=== PATIENT | female | born 1940 | race Hispanic/Latino ===

== ENCOUNTER → 2019-07-02 | Outpatient (CLI) | payer MEDICARE | END | disposition home or self-care (01) | LOC: SHCH 14:41 | PROVIDERS: ATTEND Internal Medicine Cardiovascular Disease | DX: R07.9 Chest pain, unspecified (principal) | CPT/HCPCS: 93306 ==

== ENCOUNTER → 2019-07-06 | Outpatient (CLI) | payer MEDICARE ==
[~2019-07-06] VITALS: Ht 167.6 cm; Wt 78.0 kg
[~2019-07-06] MED LIST: REGADENOSON 0.4 MG/5 ML PF SYG IVP SCH
== END | disposition home or self-care (01) ==
LOC: SHCH 07:47
PROVIDERS: ATTEND Internal Medicine Cardiovascular Disease
DX: M06.9 Rheumatoid arthritis, unspecified (principal); R07.9 Chest pain, unspecified
CPT/HCPCS: 78452; 93017; 96374; A9500 ×2; J2785

== ENCOUNTER → 2019-08-31 | Outpatient (CLI) | payer MEDICARE | END | disposition home or self-care (01) | LOC: RAH 10:19 | PROVIDERS: ATTEND Family Medicine | DX: R10.12 Left upper quadrant pain (principal); Z90.710 Acquired absence of both cervix and uterus; Z90.49 Acquired absence of other specified parts of digestive tract | CPT/HCPCS: 76700; 76856 ==

== ENCOUNTER 2020-04-06 06:09 | Observation (INO) | payer MEDICARE ==
[2020-04-01 13:18] LABS: BASOPHILS % (AUTO) 0.6 % (0.0-5.0); EOSINOPHILS % (AUTO) 1.5 % (0.0-8.0); HEMATOCRIT 42.6 % (36-48); LYMPHOCYTES % (AUTO) 35.4 % (21.0-51.0); MEAN CORPUSCULAR HEMOGLOBIN 30.4 pg (27.0-33.0); MEAN CORPUSCULAR HGB CONC 33.6 g/dL (32.0-36.0); MEAN CORPUSCULAR VOLUME 90.6 fL (79-99); NEUTROPHILS % (AUTO) 53.2 % (40.0-77.0); PLATELET COUNT (AUTO) 208 K/uL (130-400); RED CELL DISTRIBUTION WIDTH 12.7 % (11.0-15.5); WHITE BLOOD COUNT (AUTO) 6.7 K/uL (4.8-10.8)
[2020-04-01 13:27] LABS: CREATININE 0.6 mg/dL (0.5-1.5); POTASSIUM 4.6 mmol/L (3.5-5.1)
[2020-04-01 13:32] LABS: INR 0.92 (0.85-1.15); PARTIAL THROMBOPLASTIN TIME 26.1 SEC (26.3-35.5)
[2020-04-01 13:33] LABS: APPEARANCE,URINE Clear (CLEAR); BILIRUBIN,URINE Negative (NEGATIVE); COLOR,URINE Dark Yellow (YELLOW); GLUCOSE, URINE (UA) Negative (NEGATIVE); KETONES,URINE Negative (NEGATIVE); LEUKOCYTE ESTERASE ,URINE Small (NEGATIVE); NITRATE,URINE Negative (NEGATIVE); OCCULT BLOOD,URINE Negative (NEGATIVE); PROTEIN,URINE Negative (NEGATIVE)
[2020-04-01 13:38] LABS: BACTERIA,URINE Rare /HPF (None Seen); RBC,URINE 0-1 /HPF (0-1); SQUAMOUS EPITHELIAL CELL,UR Rare /HPF (0-2); WBC,URINE 0-1 /HPF (0-1)
[2020-04-05 10:25] VITALS: BP 144/73
[~2020-04-06] VITALS: Ht 167.6 cm; Wt 78.4 kg
[2020-04-06] VITALS (21 sets, daily range): BP systolic 105–196; BP diastolic 49–81
[~2020-04-06 06:09] MED LIST changes: +ASCO100031 PO; +CARV6.25 PO; +CHOL500051 PO; +LATA7.5D OU; +PANT40TA54 PO; +PROP15DR56 OD; -REGADENOSON 0.4 MG/5 ML PF SYG IVP SCH; +VITA100014 PO; +VITA1CAP PO
[2020-04-06] MEDS ORDERED: SODIUM CHLORIDE 0.9% 1000ML 1,000 ML IV ONE (07:07)
[2020-04-06] MEDS ORDERED: IOHEXOL 350 MG/ML 100ML INFUS..BTL IV ONE (07:10)
[2020-04-06] MEDS ORDERED: HEPARIN SODIUM 1000UNIT/ML 10ML VIAL ONE (07:10)
[2020-04-06] MEDS ORDERED: IOHEXOL-350 50ML VIAL IV ONE (07:10)
[2020-04-06] MEDS ORDERED: LIDOCAINE HCL 2% 20ML ONE (07:10)
[2020-04-06] MEDS ORDERED: NITROGLYCERIN 4.1 GM SPRAY TL ONE (07:44)
[2020-04-06] MEDS ORDERED: SODIUM CHLORIDE 0.9% 10 ML VIAL IVP SCH ×2 (08:15→09:45)
[2020-04-06] MEDS ORDERED: ONDANSETRON HCL 4 MG/2 ML VIAL ONE (09:15)
[2020-04-06] MEDS ORDERED: ONDANSETRON HCL 4 MG/2 ML VIAL IVP SCH (09:30)
--- NOTE | 2020-04-06 10:05 | NUR ---
alteration in comfort: pat verbalized nausea subsided.
--- NOTE | 2020-04-06 10:05 | NUR ---
urinary elimination: voided 125cc clear yellow color urine in bedpan.
--- NOTE | 2020-04-06 13:40 | NUR ---
potential for bleeding: cleaned area to right groin area. noted continous oozing to site.
--- NOTE | 2020-04-06 13:50 | NUR ---
bleeding: notified mario posada rn of oozing to site. d-stat removed to check site and reapplied with clean d-stat per gTeagan escalante rn. pressure held for 30 minutes. surrounding area remained soft to touch.
--- NOTE | 2020-04-06 13:55 | NUR ---
ADMIT LICO LOVELACE ON PHONE. ORDERS PER DR. EASON TO ADMIT PT TO DR. MCINTOSH OVERNIGHT TO PCCU.
--- NOTE | 2020-04-06 13:55 | NUR ---
BLEEDING INFORMED LICO LOVELACE OF PT HAVING SLIGHT OOZING TO GROIN SITE. SITE SOFT TO TOUCH. ORDERS RECEIVED TO APPLY 30 MINUTES OF PRESSURE TO SITE, APPLY NEW DSTAT, AND ASSESS SITE FREQUENTLY.PT TO BE ON BEDREST.
--- NOTE | 2020-04-06 15:03 | NUR ---
report: report given to primary care nurse renée hermosillo
[2020-04-06] MEDS ORDERED: ACETAMINOPHEN 325 MG TAB PO PRN (17:30)
[2020-04-06] MEDS ORDERED: MORPHINE SULFATE 2 MG/ML 1ML SYG IVP ONE (19:40)
[2020-04-06] MEDS: CARVEDILOL 6.25 MG TABLET PO SCH (20:15)
[2020-04-06] MEDS ORDERED: ONDANSETRON HCL 4 MG/2 ML VIAL IVP PRN (20:15)
--- NOTE | 2020-04-06 20:15 | NUR ---
NAUSEA Pt c/o of nausea,medicated with Zofran.
[2020-04-06] MEDS ORDERED: NON-FORMULARY MEDICATION 1 EACH (Latanoprost/Pf (Latanoprost 0.005% Eye Drop) 1 DROP) OU SCH (21:00)
[2020-04-06] MEDS ORDERED: LATANOPROST 2.5 ML DROPS OU SCH (21:00)
--- NOTE | 2020-04-06 21:00 | NUR ---
RT GROIN Rt groin site remains soft,d stat dressing dry and intact.No hematoma,pedal pulses palpable.
--- NOTE | 2020-04-06 21:15 | NUR ---
MED EFFECT Pt verbalized relief from nausea.
[2020-04-07 03:50] VITALS: BP 144/50
[2020-04-07 04:07] LABS: BASOPHILS % (AUTO) 0.4 % (0.0-5.0); EOSINOPHILS % (AUTO) 0.3 % (0.0-8.0); HEMATOCRIT 38.9 % (36-48); LYMPHOCYTES % (AUTO) 30.7 % (21.0-51.0); MEAN CORPUSCULAR HEMOGLOBIN 30.5 pg (27.0-33.0); MEAN CORPUSCULAR HGB CONC 34.4 g/dL (32.0-36.0); MEAN CORPUSCULAR VOLUME 88.6 fL (79-99); MONOCYTES % (AUTO) 9.8 % (3.0-13.0); NEUTROPHILS % (AUTO) 58.4 % (40.0-77.0); PLATELET COUNT (AUTO) 186 K/uL (130-400); RED BLOOD CELL COUNT(AUTO) 4.39 MIL/uL (4.00-5.50); RED CELL DISTRIBUTION WIDTH 12.6 % (11.0-15.5); WHITE BLOOD COUNT (AUTO) 10.2 K/uL (4.8-10.8)
[2020-04-07 04:27] LABS: CREATININE 0.6 mg/dL (0.5-1.5); POTASSIUM 3.4 mmol/L (3.5-5.1)
[2020-04-07] MEDS ORDERED: PROPYLENE GLYCOL OD PRN (07:00)
[2020-04-07] MEDS ORDERED: PEG OD PRN (07:00)
[2020-04-07 07:49] VITALS: BP 158/68
[2020-04-07] MEDS: CARVEDILOL 6.25 MG TABLET PO SCH (08:43)
[2020-04-07] MEDS ORDERED: POTASSIUM CHLORIDE 20 MEQ ERTAB PO SCH (09:00)
[2020-04-07] MEDS ORDERED: PANTOPRAZOLE SODIUM 40 MG TABLET.DR PO SCH (09:00)
[2020-04-07] MEDS ORDERED: VITAMIN B COMPLEX 1 CAPSULE PO SCH (09:00)
[2020-04-07] MEDS ORDERED: NON-FORMULARY MEDICATION 1 EACH (Ascorbic Acid (Vitamin C) 1,000 MG) PO SCH (09:00)
[2020-04-07] MEDS ORDERED: VITAMIN A 10000 UNIT CAPSULE PO SCH (09:00)
[2020-04-07] MEDS ORDERED: CHOLECALCIFEROL 125 MCG PO SCH (09:00)
[2020-04-07] MEDS ORDERED: ASCORBIC ACID 500 MG TAB PO SCH (09:00)
--- NOTE | 2020-04-07 11:28 | NUR ---
[id number] patient signed EARL Letter, I faxed EARL Letter to [id number] and placed in chart under consent tab.
[2020-04-07 11:45] VITALS: BP 128/59
--- NOTE | 2020-04-07 13:40 | NUR ---
DISCHARGE INSTRUCTIONS GIVEN TO PATIENT, MADE AWARE OF FOLLOW UP APPOINTMENT WITH DR. EASON, MADE AWARE OF NEW RX FOR IMDUR. ASSESSED PATIENTS RIGHT GROIN, REMOVED DRESSING, AREA SOFT, NO HEMATOMA OR BLEEDING NOTED. PATIENT AT THIS TIME DENIES ANY CHEST PAIN, AMBULATING IN ROOM WITH NO DIFFICULTY. ALL QUESTIONS ANSWERED. IV AND TELE REMOVED. WILL BE PICKED UP BY HER DAUGHTER. DISCHARGE INSTRUCTIONS ALSO GIVEN TO PATIENTS DAUGHTER OVER THE PHONE.
== END 2020-04-07 13:40 | disposition home or self-care (01) ==
LOC: DAH 06:09 → DAHIP 06:10 → 4AH 15:14
PROVIDERS: ADMIT Internal Medicine; ATTEND Internal Medicine
DX: I25.119 Atherosclerotic heart disease of native coronary artery with unspecified angina pectoris (principal); K21.9 Gastro-esophageal reflux disease without esophagitis; I11.9 Hypertensive heart disease without heart failure; Z90.710 Acquired absence of both cervix and uterus; Z90.49 Acquired absence of other specified parts of digestive tract
CPT/HCPCS: 36415 ×2; 71045; 80048 ×2; 81001; 85025 ×2; 85610; 85730; 93005; 93458; 96361; 96374; 96375; A4215; A4216; A4221; A4222; A4223 ×3; A4606; A4663; C1760 ×2; C1894; G0378 ×19; J1644; J2405 ×2; J3490; J7030; Q9965; Q9967 ×2

== ENCOUNTER → 2022-10-22 | Outpatient (CLI) | payer OTHER, MEDICARE ==
[2022-10-22 16:44] LABS: ALBUMIN 3.6 g/dL (3.5-5.0); CREATININE 0.7 mg/dL (0.5-1.5); POTASSIUM 4.3 mmol/L (3.5-5.1); TOTAL PROTEIN, SERUM 7.8 g/dL (6.0-8.3)
== END | disposition home or self-care (01) ==
LOC: LAB 10:43
PROVIDERS: ATTEND Internal Medicine Cardiovascular Disease
DX: I25.10 Atherosclerotic heart disease of native coronary artery without angina pectoris (principal)
CPT/HCPCS: 36415; 80053; 80061

== ENCOUNTER → 2023-09-02 | Outpatient (CLI) | payer OTHER, MEDICARE | END | disposition home or self-care (01) | LOC: SHCH 08:46 | PROVIDERS: ATTEND Internal Medicine Cardiovascular Disease | DX: I73.9 Peripheral vascular disease, unspecified (principal) | CPT/HCPCS: 93925 ==

== ENCOUNTER 2024-12-25 17:50 | Observation (INO) | payer OTHER, MEDICARE ==
[~2024-12-25] VITALS: Ht 160 cm; Wt 66.7 kg
[~2024-12-25 17:50] MED LIST changes: +CILO100T3 PO
--- NOTE | 2024-12-25 18:05 | ERN ---
ED Note History of Present Illness Stated Complaint: DIARRHEA Chief Complaint: Diarrhea Time Seen by MD: 18:00 Time Seen by Midlevel: 18:00 Dictation: Ms. Corrales is a 84 year old female with history of hypertension, hyperlipidemia, and GERD who presented to the Emergency Department this evening for evaluation of abdominal pain. She reports diffuse abdominal pain with nausea and diarrhea. She reports 6 diarrhea stools as well as some low back pain. She was recently discharged from the hospital on 12/16 following admission for dehydration, enterocolitis, hyperkalemia, transaminitis, and intractable nausea and vomiting. Family states she did eat She denies fever, chills, shortness of breath, cough, chest pain, palpitations, edema, vomiting, hematemesis, melena, hematochezia, dysuria, hematuria, ALLEN or dizziness. Allergies: Coded Allergies: No Known Allergies (Unverified Allergy, 03/04/13) Emergency Care WEAVING INSTRUCTOR: None Home Meds Reported Medications Cilostazol (Cilostazol) 100 Mg Tablet, 1 TAB PO BIDPC TAKE 30 MINS AFTER BREAKFAST AND DINNER 12/15/23 Propylene Glycol/Peg 400 (Lubricating Eye Drop) 15 Ml Drops, 1 DROP OD 4XD PRN for DRY EYES, DROP 04/05/20 Latanoprost/Pf (Latanoprost 0.005% Eye Drop) 7.5 Ml Drops, 1 DROP OU HS, DROP 04/05/20 Pantoprazole Sodium (Pantoprazole Sodium) 40 Mg Tablet.dr, 40 MG PO AM, TAB 04/05/20 Cholecalciferol (Vitamin D3) (Vitamin D3) 125 Mcg Capsule, 125 MCG PO DAILY, CAP 04/05/20 Vitamin A (Vitamin A) 10,000 Unit/Cap Capsule, 29464 UNIT PO DAILY, CAP 04/05/20 Ascorbic Acid (Vitamin C) 1,000 Mg Tablet, 1000 MG PO DAILY, TAB 04/05/20 Vitamin B Complex (B Complex) 1 Cap Capsule, 1 CAP PO DAILY, CAP 04/05/20 Carvedilol (Carvedilol) 6.25 Mg Tablet, 6.25 MG PO BID, TAB 04/05/20 Past Medical History Past Medical History: High Cholesterol, Hypertension Surgical History: Appendectomy, Hysterectomy, Other Surgical History Other: BLADDER LIFT PSYCH History: no pertinent psych hx Social History: Negative History: Not Applicable RN Note Reviewed/Agreed w/PFSH: Yes Review of System Dictation REVIEW OF SYSTEMS: CONSTITUTIONAL: Patient denies fevers, chills, sweats and weight changes. EYES: Patient denies any visual symptoms. EARS, NOSE, AND THROAT: No difficulties with hearing. No symptoms of rhinitis or sore throat. CARDIOVASCULAR: Patient denies chest pains, palpitations, orthopnea and paroxysmal nocturnal dyspnea. RESPIRATORY: No dyspnea on exertion, no wheezing or cough. GI: No vomiting, constipation, hematochezia or melena. Reports abdominal pain/cramping. Reports nausea without vomiting. Reports 6 diarrhea stools today. : No urinary hesitancy or dribbling. No nocturia or urinary frequency. No abnormal urethral discharge. MUSCULOSKELETAL: No myalgias or arthralgias. NEUROLOGIC: No chronic headaches, no seizures. Patient denies numbness, tingling or weakness. PSYCHIATRIC: Patient denies problems with mood disturbance. No problems with anxiety. ENDOCRINE: No excessive urination or excessive thirst. DERMATOLOGIC: Patient denies any rashes or skin changes. Initial Vital Sign VS Vital Signs Date Time Temp Pulse Resp B/P (MAP) Pulse Ox O2 Delivery O2 Flow Rate FiO2 12/25/24 17:51 97.9 77 18 141/64 96 Room Air 12/25/24 18:15 0 21 Physical Exam Dictation Vital signs: Reviewed. Afebrile. Constitutional:Uncomfortable; moaning. Holding her stomach. Daughter attentive at bedside. Head/Face: Normocephalic, atraumatic. Eyes: Periorbital areas with no swelling, redness, or edema. Lids and lashes are normal. Conjunctival injection is absent. Sclera anicteric. Pupils equal, round, reactive to light. ENT: Pinnas intact and no signs of trauma or erythema. Ear canals clear and no discharge. TMs no erythema. No nasal discharge or bleeding noted. Oropharynx with no exudate, redness, swelling, masses, exudates, or evidence of obstruction. Uvula midline. Mucous membranes dry. Neck: Trachea midline, no masses palpated, and no cervical lymphadenopathy. No swelling. Supple, full range of motion. Chest/Axilla: No tenderness, no crepitus, no paradoxical movement, no retractions. Cardiovascular: Regular rate, regular rhythm, no murmur, no gallops. Symmetric pulses. No peripheral edema. Respiratory: Respirations even and unlabored. Lung sounds clear; no wheezes, rales or rhonchi. Room air spo2 96% Gastrointestinal: Inspection is normal. No distention is appreciated. Bowel sounds are normal. No mass or organomegaly . Tenderness diffusely. No rebound. No rigidity. No involuntary guarding. No Solo's sign. + voluntary guarding. : Negative CVA tenderness bilaterally. Neurological: Normal speech, gross motor function intact, gross sensory function intact. No focal weakness/Paresthesia. Musculoskeletal/Extremities: All extremities have full range of motion, no pain or tenderness on palpation. Symmetric pulses. Integumentary: Intact. Skin is normal color, warm and dry. Cap refill less than 3 seconds. Results (Laboratory/Radiology) Laboratory/Radiology Laboratory Tests Test 12/25/24 18:56 12/25/24 19:02 White Blood Count 11.6 K/uL (4.8-10.8) H Red Blood Count 4.52 MIL/uL (4.00-5.50) Hemoglobin 13.7 g/dL (12.0-16.0) Hematocrit 41.0 % (36-48) Mean Corpuscular Volume 90.7 fL (79-99) Mean Corpuscular Hemoglobin 30.3 pg (27.0-33.0) Mean Corpuscular Hemoglobin Concent 33.4 g/dL (32.0-36.0) Red Cell Distribution Width 13.0 % (11.0-15.5) Platelet Count 221 K/uL (130-400) Mean Platelet Volume 11.0 fL (7.5-10.5) H Immature Granulocyte % (Auto) 0.4 % (0-1) Neutrophils (%) (Auto) 71.8 % (40.0-77.0) Lymphocytes (%) (Auto) 18.3 % (21.0-51.0) L Monocytes (%) (Auto) 8.2 % (3.0-13.0) Eosinophils (%) (Auto) 0.9 % (0.0-8.0) Basophils (%) (Auto) 0.4 % (0.0-5.0) Neutrophils # (Auto) 8.3 K/uL (1.8-7.7) H Lymphocytes # (Auto) 2.1 K/uL (1.0-4.8) Monocytes # (Auto) 1.0 K/uL (0.1-1.0) Eosinophils # (Auto) 0.10 K/uL (0.00-0.70) Basophils # (Auto) 0.05 K/uL (0.00-0.20) Absolute Immature Granulocyte (auto 0.05 K/uL (0-1) Nucleated Red Blood Cells 0.0 % (0.0-0.19) Sodium Level 142 mmol/L (136-145) Potassium Level 4.5 mmol/L (3.5-5.1) Chloride Level 107 mmol/L (101-111) Carbon Dioxide Level 27 mmol/L (21-32) Blood Urea Nitrogen 9 mg/dL (7-18) Creatinine 0.6 mg/dL (0.5-1.0) Glomerular Filtration Rate Calc 88 mL/min (>90) Random Glucose 100 mg/dL (70-105) Total Calcium 9.0 mg/dL (8.5-10.1) Total Bilirubin 1.2 mg/dL (0.2-1.0) H Direct Bilirubin 0.4 mg/dL (0.0-0.3) H Aspartate Amino Transf (AST/SGOT) 67 U/L (10-37) H Alanine Aminotransferase (ALT/SGPT) 28 U/L (12-78) Alkaline Phosphatase 126 U/L (50-136) Total Protein 7.2 g/dL (6.0-8.3) Albumin 3.3 g/dL (3.5-5.0) L Lipase 49 U/L (16-77) Urine Color STRAW (YELLOW) Urine Appearance CLEAR (CLEAR) Urine pH 5.5 (5.0-8.0) Urine Specific [place] 1.007 (1.001-1.031) Urine Protein NEGATIVE mg/dL (NEGATIVE) Urine Glucose (UA) NEGATIVE mg/dL (NEGATIVE) Urine Ketones NEGATIVE mg/dL (NEGATIVE) Urine Occult Blood NEGATIVE (NEGATIVE) Urine Nitrate NEGATIVE (NEGATIVE) Urine Bilirubin NEGATIVE mg/dL (NEGATIVE) Urine Urobilinogen 0.2 mg/dL (0.2-1.0) Urine Leukocyte Esterase NEGATIVE Valdo/uL Labs Reviewed?: Yes CT Scan Comment: PATIENT: DANIE CORRALES MR#: [id number] : 1940 SEX: F AGE: 84 LOCATION: [facility] ORDER 17 STATUS: REG ER REPORT#: [id number] SERVICE 16 REASON: abdominal pain, hx diverticulitis ORDERING PHYSICIAN: ENE PIERRE NP PROCEDURE: ABD PEL WO - CT ABDOMEN/PELVIS W/O CONTRAST CT ABDOMEN/PELVIS W/O CONTRAST HISTORY: Abdominal pain COMPARISON: 12/14/2003 TECHNIQUE: Multiple sequential axial images of the abdomen and pelvis were obtained from the dome of the diaphragm through symphysis pubis. Patient was not given contrast through intravenous route. Oral contrast was not given. FINDINGS: No pleural effusion is seen bilaterally. There is no evidence of parenchymal disease or pulmonary nodule of the visualized lower lungs. Degenerative changes of the thoracolumbar spine are present. The heart is not enlarged. Coronary arterial calcifications are seen. Postcholecystectomy changes are seen. The liver, spleen, adrenal glands and pancreas are unremarkable. There is no evidence of hydronephrosis bilaterally. No evidence of renal stone is seen. Fecal material is seen in the colon. There are normal size retroperitoneal and mesenteric lymph nodes. No ascites is seen. No CT evidence of acute appendicitis is seen. Pelvic sidewalls are symmetric bilaterally. Bladder is well distended without wall thickening. IMPRESSION: 1. No acute findings. CT was performed with one or more following dose reduction techniques: automated exposure control, adjustment of the mA and kv according to patient's size, or use of a iterative reconstruction technique. DICTATED BY: LAY CALDERÓN MD DATE: 12/25/242014 ELECTRONICALLY SIGNED BY: LAY CALDERÓN MD DATE: 12/25/242021 ED Course ED Course Orders Procedure Category Date Status Time Urinalysis Profile LAB 12/25/24 Complete Catherized 18:01 Cbc With Differential LAB 12/25/24 Complete 18:01 Basic Metabolic Panel LAB 12/25/24 Complete 18:01 Hepatic Function Panel LAB 12/25/24 Complete 18:01 Lipase LAB 12/25/24 Complete 18:01 0.9% Nacl 500ml PHA 12/25/24 Complete Iv.Soln (Ns 500ml 18:30 Ondansetron 4mg Inj PHA 12/25/24 Complete (Zofran 4mg Inj) 18:30 Morphine 2mg Syg PHA 12/25/24 Complete (Morphine 2mg Syg) 18:30 Ct Abdomen/Pelvis W/O CT 12/25/24 Resulted Contrast 19:17 Pantoprazole 40mg Inj PHA 12/25/24 Complete (Protonix 40mg Inj 20:00 Fecal Wbc LAB 12/25/24 Logged (Lactoferrin) 20:56 Stool Culture MICHELLE 12/25/24 Logged 20:56 C Difficile A/B LAB 12/25/24 Logged 20:56 Ova And Parasite MICHELLE 12/25/24 Logged 20:56 Occult Blood Stool LAB 12/25/24 Logged Single Only 20:56 C Difficile A/B LAB 12/25/24 Logged 21:14 Metronidazole PHA 12/25/24 In Process 500mg/100ml Bag 22:00 Lactated Ringers PHA 12/25/24 In Process 1000ml (Lactated 21:30 Morphine 2mg Syg PHA 12/25/24 In Process (Morphine 2mg Syg) 21:30 Vital Signs(Adult CPOE 12/25/24 Transmitted Hospitalist) 21:14 Acetaminophen 325 Tab PHA 12/25/24 In Process (Tylenol 325mg Tab 21:30 Acetaminophen 325 Tab PHA 12/25/24 In Process (Tylenol 325mg Tab 21:30 Ondansetron 4mg Inj PHA 12/25/24 In Process (Zofran 4mg Inj) 21:30 Mag/Alum/Simeth 30ml PHA 12/25/24 In Process (Maalox Plus 30ml) 21:30 Nitroglycerin 0.4mg PHA 12/25/24 In Process Sl Tab (Nitrostat) 21:30 Guaifenesin-Dm PHA 12/25/24 In Process 200/20mg 10ml 21:30 Nurse To Enter Home CPOE 12/25/24 Transmitted Medication 21:14 Admit Orders ADM 12/25/24 Transmitted 21:14 Condition: CPOE 12/25/24 Transmitted 21:14 Clear Liquid DIET 12/26/24 Transmitted Breakfast Advance Diet As CPOE 12/25/24 Transmitted Tolerated To: 21:14 Enoxaparin Sodium 40 PHA 12/26/24 In Process Mg/0.4 Ml (Lovenox) 09:00 Hydralazine 20mg Inj PHA 12/25/24 In Process (Apresoline 20mg In 21:30 Occult Blood Stool LAB 12/25/24 Logged Single Only 21:14 Pt Eval Request PT 12/25/24 Transmitted 21:14 Current Medications Medications (Trade) Dose Ordered Sig/Gino Route PRN Reason Start Time Stop Time Status Last Admin Dose Admin Morphine Sulfate (morPHINE 2MG SYG) 2 mg ONCE ONCE IVP 12/25/24 18:30 12/25/24 18:31 DC 12/25/24 18:45 Ondansetron HCl (zoFRAN 4MG INJ) 4 mg ONCE ONCE IVP 12/25/24 18:30 12/25/24 18:31 DC 12/25/24 18:45 Pantoprazole Sodium (PROTonix 40MG INJ) 40 mg ONCE ONCE IVP 12/25/24 20:00 12/25/24 20:01 DC 12/25/24 20:23 Sodium Chloride 500 ml @ 0 mls/hr ONCE ONCE IV 12/25/24 18:30 12/25/24 18:31 DC 12/25/24 18:45 Vital Signs Date Time Temp Pulse Resp B/P (MAP) Pulse Ox O2 Delivery O2 Flow Rate FiO2 12/25/24 22:30 97.9 72 20 154/83 96 Room Air 12/25/24 22:21 98.1 64 15 145/62 97 Room Air* 0 12/25/24 21:15 97.9 71 14 140/59 99 Room Air* 0 12/25/24 20:15 97.5 70 16 133/56 98 Room Air* 0 12/25/24 19:11 97.7 67 15 135/54 99 Room Air* 0 12/25/24 18:15 65 24 156/64 100 Room Air* 0 12/25/24 17:51 97.9 77 18 141/64 96 Room Air Vital signs remained stable; afebrile and normotensive with room air SpO2 96- 100%. CT scan of the abdomen and pelvis unremarkable. Laboratory findings as noted below. WBCs 11.6, total bili 1.2, AST 64, and albumin 3.3. UA is clear. She received doses Protonix, Zofran, and morphine. Pain persists. Findings were discussed with ORE DRESSING ENGINEER Soren who accepts for admission to be BIS Medical Decision Making MDM MDM: Differential diagnosis: Diverticulitis, electrolyte derangement, dehydration, UTI Rationale: Tests considered and ordered secondary to shared decision making include: labs, ECG and radiology Previous outside records reviewed: Old ER visits. Risk of complication and/or morbidity or mortality of patient management: None Medications-Per medication reconciliation Need for hospitalization: Patient does meet criteria for hospitalization. Need for emergency major/minor surgery: No There are no social concerns with this patient. Prescription drug management Prescriptions will include symptomatic care Patient's prior external medical records from other ER visits were reviewed by me as indicated. Prior testing and results from previous visits were reviewed. Prior tests were taken into account with medical decision making and resource utilization, independent historian/historians were used to obtain complete medical history. I independently interpreted the test that were performed, results were reviewed by me and considered findings on radiology if ordered. Medical management and examination interpretation discussions were had by me with other qualified healthcare professionals as indicated for the patient's care. DX & DISP Disposition: Observation Departure Impression: Primary Impression: Intractable abdominal pain Additional Impressions: Diarrhea, Transaminitis, Leukocytosis Condition: Stable Assign Patient to: Dr. Alexandro Bowling Referrals: ANTOINETTE GLASGOW MD (PCP) I performed a substantive portion of the visit. I have reviewed and personally made and approve the management plan that is documented in the notes by myself with FRANSICO/resident. I acknowledged full responsibility for the patient's management plan. ENE PIERRE NP December 25, 2024 18:05 EDY QURESHI DO December 26, 2024 01:04
--- NOTE | 2024-12-25 18:15 | NUR ---
PT SITUATED IN 14
[2024-12-25] MEDS: morPHINE 2 MG SYG IVP ONE (18:45)
[2024-12-25] MEDS: ondanSETRON 4MG INJ IVP ONE (18:45)
[2024-12-25] MEDS: 0.9% NACL 500ML IV.SOLN 500 ML IV ONE (18:45)
[2024-12-25 19:07] LABS: BASOPHILS # (AUTO) 0.05 K/uL (0.00-0.20); BASOPHILS % (AUTO) 0.4 % (0.0-5.0); EOSINOPHILS % (AUTO) 0.9 % (0.0-8.0); IMMATURE GRANULOCYTE ABSOLUTE 0.05 K/uL (0-1); LYMPHOCYTES # (AUTO) 2.1 K/uL (1.0-4.8); LYMPHOCYTES % (AUTO) 18.3 % (21.0-51.0); MEAN CORPUSCULAR HEMOGLOBIN 30.3 pg (27.0-33.0); MEAN CORPUSCULAR HGB CONC 33.4 g/dL (32.0-36.0); MEAN CORPUSCULAR VOLUME 90.7 fL (79-99); MONOCYTES % (AUTO) 8.2 % (3.0-13.0); NEUTROPHILS # (AUTO) 8.3 K/uL (1.8-7.7); NEUTROPHILS % (AUTO) 71.8 % (40.0-77.0); PLATELET COUNT (AUTO) 221 K/uL (130-400); RED BLOOD CELL COUNT(AUTO) 4.52 MIL/uL (4.00-5.50); WHITE BLOOD COUNT (AUTO) 11.6 K/uL (4.8-10.8)
[2024-12-25 19:13] LABS: CREATININE 0.6 mg/dL (0.5-1.0); POTASSIUM 4.5 mmol/L (3.5-5.1)
[2024-12-25 19:17] LABS: ALBUMIN 3.3 g/dL (3.5-5.0); BILIRUBIN,DIRECT 0.4 mg/dL (0.0-0.3); BILIRUBIN,TOTAL 1.2 mg/dL (0.2-1.0); TOTAL PROTEIN, SERUM 7.2 g/dL (6.0-8.3)
[2024-12-25 19:26] LABS: APPEARANCE,URINE CLEAR (CLEAR); BILIRUBIN,URINE NEGATIVE (NEGATIVE); GLUCOSE, URINE (UA) NEGATIVE (NEGATIVE); KETONES,URINE NEGATIVE (NEGATIVE); LEUKOCYTE ESTERASE ,URINE NEGATIVE Leu/uL (NEGATIVE); NITRATE,URINE NEGATIVE (NEGATIVE); OCCULT BLOOD,URINE NEGATIVE (NEGATIVE); PH,URINE 5.5 (5.0-8.0); PROTEIN,URINE NEGATIVE (NEGATIVE); UROBILINOGEN,URINE 0.2 mg/dL (0.2-1.0)
[2024-12-25 19:30] LABS: ADD UA MICROSCOPIC NO
[2024-12-25 19:31] LABS: COLOR,URINE STRAW (YELLOW)
--- NOTE | 2024-12-25 20:00 | NUR ---
PT TO CT AT THIS TIME
--- NOTE | 2024-12-25 20:22 | HMCIMG ---
CT ABDOMEN/PELVIS W/O CONTRAST HISTORY: Abdominal pain COMPARISON: 12/14/2003 TECHNIQUE: Multiple sequential axial images of the abdomen and pelvis were obtained from the dome of the diaphragm through symphysis pubis. Patient was not given contrast through intravenous route. Oral contrast was not given. FINDINGS: No pleural effusion is seen bilaterally. There is no evidence of parenchymal disease or pulmonary nodule of the visualized lower lungs. Degenerative changes of the thoracolumbar spine are present. The heart is not enlarged. Coronary arterial calcifications are seen. Postcholecystectomy changes are seen. The liver, spleen, adrenal glands and pancreas are unremarkable. There is no evidence of hydronephrosis bilaterally. No evidence of renal stone is seen. Fecal material is seen in the colon. There are normal size retroperitoneal and mesenteric lymph nodes. No ascites is seen. No CT evidence of acute appendicitis is seen. Pelvic sidewalls are symmetric bilaterally. Bladder is well distended without wall thickening. IMPRESSION: 1. No acute findings. CT was performed with one or more following dose reduction techniques: automated exposure control, adjustment of the mA and kv according to patient's size, or use of a iterative reconstruction technique.
[2024-12-25] MEDS: PANTOPrazole 40 MG/VIAL IVP ONE (20:23)
[2024-12-25] MEDS ORDERED: NITROGLYCERIN 0.4 MG SL TAB SL PRN (21:30)
[2024-12-25] MEDS ORDERED: guaiFENesin-DM 200/20MG 10ML PO PRN (21:30)
[2024-12-25] MEDS ORDERED: ondanSETRON 4MG INJ IV PRN (21:30)
[2024-12-25] MEDS ORDERED: acetaMINOPHEN 325 MG TAB PO PRN ×2 (21:30)
[2024-12-25] MEDS ORDERED: morPHINE 2 MG SYG IVP PRN (21:30)
[2024-12-25] MEDS ORDERED: hydrALAZine 20MG/ML VIAL IV PRN (21:30)
[2024-12-25] MEDS ORDERED: MAG/ALUM/SIMETH 30 ML UDCUP PO PRN (21:30)
--- NOTE | 2024-12-25 21:31 | HP ---
[facility] HISTORY & PHYSICAL Date Patient Seen: December 25, 2024 Time of Visit: 21:23 Supervising Physician: DR. WALE REN Primary Care Physician: DR.GARCIA CURRY Outpatient Specialists: [ ] Inpatient Consults: [ ] PROBLEM LIST: 1. Acute gastroenteritis 2. Intractable Abdominal pain 3. Unsteady gait Chief complaint: Abdominal pain, nausea and vomiting, watery diarrhea HPI: Patient is a 87-year-old female with past medical history significant for hypertension, hyperlipidemia, GERD, and a surgical history of cholecystectomy, hysterectomy, bladder lift, presented to the emergency department complaining of diffuse abdominal pain associated with nausea and vomiting and watery diarrhea that started today after eating some watermelon. Patient reports that this morning, she ate some watermelon and since then, she has been having diffuse abdominal pain rated 8/10 in the pain scale associated with nausea and vomiting and watery diarrhea. Prior coming to the emergency department, patient reports taking two tablets of Imodium. Patient denies fever, chills, shortness of breath, cough, dizziness, or any other symptoms. The workup in the emergency department shows WBC of 11.6. In the emergency department, patient received NS 500 mL bolus, Zofran 4 mg IV, morphine 2 mg IV, pantoprazole 40 mg IV. Patient will be admitted to medical floor for further evaluation and treatment. PAST MEDICAL HX: see above PAST SURGICAL HX: noncontributory SOCIAL HISTORY: No tobacco, ETOH, or illicit drug use Coded Allergies: No Known Allergies (Unverified Allergy, 03/04/13) REVIEW OF SYSTEMS: 12 point ROS reviewed with patient. Pertinent positives mentioned above. Otherwise negative. PHYSICAL EXAM: GENERAL: alert, weak, awake oriented x 3 HEENT: EOMI, Sclera non icteric, moist mucosa NECK: Supple, no JVD, trachea midline LUNGS: Clear breath sounds bilaterally. No wheezes HEART: Regular rate and rhythm. Normal S1 and S2, without murmurs ABD: Abdomen soft, tender on palpation, bowel sounds present EXT: No clubbing cyanosis or edema NEURO: Alert and oriented to person, follows commands Vital Signs (last 8hr) Date Time Temp Pulse Resp B/P (MAP) Pulse Ox O2 Delivery O2 Flow Rate FiO2 12/25/24 19:11 97.7 67 15 135/54 99 Room Air* 0 21 12/25/24 18:15 65 24 156/64 100 Room Air* 0 21 12/25/24 17:51 97.9 77 18 141/64 96 Room Air LABS: Hematology Labs: Test 12/25/24 18:56 Range/Units White Blood Count 11.6 H 4.8-10.8 K/uL Red Blood Count 4.52 4.00-5.50 MIL/uL Hemoglobin 13.7 12.0-16.0 g/dL Hematocrit 41.0 36-48 % Mean Corpuscular Volume 90.7 79-99 fL Mean Corpuscular Hemoglobin 30.3 27.0-33.0 pg Mean Corpuscular Hemoglobin Concent 33.4 32.0-36.0 g/dL Red Cell Distribution Width 13.0 11.0-15.5 % Platelet Count 221 130-400 K/uL Mean Platelet Volume 11.0 H 7.5-10.5 fL Immature Granulocyte % (Auto) 0.4 0-1 % Neutrophils (%) (Auto) 71.8 40.0-77.0 % Lymphocytes (%) (Auto) 18.3 L 21.0-51.0 % Monocytes (%) (Auto) 8.2 3.0-13.0 % Eosinophils (%) (Auto) 0.9 0.0-8.0 % Basophils (%) (Auto) 0.4 0.0-5.0 % Neutrophils # (Auto) 8.3 H 1.8-7.7 K/uL Lymphocytes # (Auto) 2.1 1.0-4.8 K/uL Monocytes # (Auto) 1.0 0.1-1.0 K/uL Eosinophils # (Auto) 0.10 0.00-0.70 K/uL Basophils # (Auto) 0.05 0.00-0.20 K/uL Absolute Immature Granulocyte (auto 0.05 0-1 K/uL Nucleated Red Blood Cells 0.0 0.0-0.19 % Chemistry Labs: Test 12/25/24 18:56 Range/Units Sodium Level 142 136-145 mmol/L Potassium Level 4.5 3.5-5.1 mmol/L Chloride Level 107 101-111 mmol/L Carbon Dioxide Level 27 21-32 mmol/L Blood Urea Nitrogen 9 7-18 mg/dL Creatinine 0.6 0.5-1.0 mg/dL Glomerular Filtration Rate Calc 88 >90 mL/min Random Glucose 100 70-105 mg/dL Total Calcium 9.0 8.5-10.1 mg/dL Total Bilirubin 1.2 H 0.2-1.0 mg/dL Direct Bilirubin 0.4 H 0.0-0.3 mg/dL Aspartate Amino Transf (AST/SGOT) 67 H 10-37 U/L Alanine Aminotransferase (ALT/SGPT) 28 12-78 U/L Alkaline Phosphatase 126 50-136 U/L Total Protein 7.2 6.0-8.3 g/dL Albumin 3.3 L 3.5-5.0 g/dL Lipase 49 16-77 U/L DIAGNOSTICS / RADIOLOGY RESULTS: [ ] PLAN NEURO: Minimize central acting medications as possible. Maintain fall precautions, adequate lighting during the day PULMONARY: Supplemental 02 as needed. Maintain aspiration precautions at all times CARDIOVASCULAR: Follow hemodynamics. Vital signs per facility protocol GI & NUTRITION: Continue with nutritional support. Continue stool softeners and laxatives as needed. Clear liquid diet to advance as tolerated Since stool for C diff Start LR at 100 mL/hour KIDNEYS & ELECTROLYTES: Strict monitoring of intake, output and overall fluid balance. Avoid nephrotoxic medications to the extent possible. Medications to be dosed according to renal function. Monitor electrolytes and replace as needed ENDOCRINE: Maintain blood glucose between 100-180 at all times. Hypoglycemia protocol in place INFECTIOUS DISEASE: Trend temperature, WBC and procalcitonin level Follow cultures, deescalate antibiotics as soon as possible. Panculture if new onset fever Flagyl 500 mg IV every 8 hours Blood culture x2 ONCOLOGY/HEMATOLOGY/COAGULATION: Monitor for s/s of bleeding Monitor hemoglobin, coagulation studies as needed SKIN: Pressure ulcer prevention per facility protocol Specialty mattress ORTHO/REHAB: Continue PT/OT Prophylaxis: Continue GI and DVT prophylaxis Code Status: Full Resuscitation Disposition: TBD Other: Total patient care time exceeds 35 minutes excluding all procedures. Case discussed with and the above plan was formulated. NATTY LCAKEY December 25, 2024 21:31
[2024-12-25] MEDS: metRONIDazole 500MG/100ML BAG 100 ML IVPB SCH (22:09)
[2024-12-25 22:30] VITALS: BP 154/83; PULSE 72; RESP 20; TEMP 97.9
--- NOTE | 2024-12-25 22:49 | NUR ---
REPORT GIVEN TO NURSE SEGURA, ALL QUESTIONS ANSWERED AT THIS TIME. NURSE EXPECTING PT ARRIVAL TO THE UNIT RM [id number]
[2024-12-26] MEDS: LACTATED RINGERS 1000ML 1,000 ML IV SCH (01:13)
[2024-12-26 04:00] VITALS: BP 139/55; PULSE 67; RESP 16; TEMP 98.2
[2024-12-26 07:58] VITALS: BP 128/58; PULSE 63; RESP 18; TEMP 97.5
[2024-12-26 08:46] VITALS: O2SAT 93
[2024-12-26] MEDS: ENOXAPARIN SODIUM 40 MG/0.4 ML SYRINGE SQ SCH (08:46)
[2024-12-26 11:14] VITALS: BP 122/55; PULSE 55; RESP 18; TEMP 97.8
[2024-12-26] MEDS ORDERED: LEVO-70 PO (15:17)
[2024-12-26] MEDS ORDERED: METR-172 PO (15:17)
--- NOTE | 2024-12-26 15:19 | DS ---
[facility] DISCHARGE SUMMARY Date Patient Seen: December 26, 2024 Time of Visit: 15:19 Supervising Physician: [Dr. Bowling] Primary Care Physician: DR.GARCIA CURRY Outpatient Specialists: [ ] Inpatient Consults: [ ] PROBLEM LIST: Acute gastroenteritis, resolved Intractable Abdominal pain, resolved HOSPITAL COURSE: HPI (per admitting provider) Patient is a 87-year-old female with past medical history significant for hypertension, hyperlipidemia, GERD, and a surgical history of cholecystectomy, hysterectomy, bladder lift, presented to the emergency department complaining of diffuse abdominal pain associated with nausea and vomiting and watery diarrhea that started today after eating some watermelon. Patient reports that this morning, she ate some watermelon and since then, she has been having diffuse abdominal pain rated 8/10 in the pain scale associated with nausea and vomiting and watery diarrhea. Prior coming to the emergency department, patient reports taking two tablets of Imodium. Patient denies fever, chills, shortness of breath, cough, dizziness, or any other symptoms. The workup in the emergency department shows WBC of 11.6. In the emergency department, patient received NS 500 mL bolus, Zofran 4 mg IV, morphine 2 mg IV, pantoprazole 40 mg IV. Patient was admitted to medical floor for further evaluation and treatment. The following day, the patient's symptoms resolved. She was unable to collect stool sample for C diff testing and stool culture. She states her abdominal pain had resolved. She attributed her symptoms to eating watermelon which she states gave her loose stools. No fever, nausea or vomiting. No abdominal pain with palpation. Patient had returned back to her baseline and asked to be discharged. She was discharged in stable condition, advised to follow up with the PCP for re-evaluation. She was given antibiotics upon discharge complete fo r five days. CHRONIC PROBLEMS: continue previous management per PCP unless otherwise indicated DISCHARGE MEDICATIONS: As listed below. Pt hemodynamically stable and afebrile at time of discharge. PCP notified of patients admission, hospital course and discharge. New Medications: Levofloxacin (Levofloxacin) 500 Mg Tablet 1 TAB PO DAILY for 5 Days, #5 TAB 0 Refills Metronidazole (Metronidazole) 500 Mg Tablet 1 TAB PO TID for 5 Days, #15 TAB 0 Refills Continued Medications: Ascorbic Acid (Vitamin C) 1,000 Mg Tablet 1000 MG PO DAILY, TAB Carvedilol (Carvedilol) 6.25 Mg Tablet 6.25 MG PO BID, TAB Cholecalciferol (Vitamin D3) (Vitamin D3) 125 Mcg Capsule 125 MCG PO DAILY, CAP Cilostazol (Cilostazol) 100 Mg Tablet 1 TAB PO BIDPC TAKE 30 MINS AFTER BREAKFAST AND DINNER Latanoprost/Pf (Latanoprost 0.005% Eye Drop) 7.5 Ml Drops 1 DROP OU HS, DROP Pantoprazole Sodium (Pantoprazole Sodium) 40 Mg Tablet.dr 40 MG PO AM, TAB Propylene Glycol/Peg 400 (Lubricating Eye Drop) 15 Ml Drops 1 DROP OD 4XD PRN for DRY EYES, DROP Vitamin A (Vitamin A) 10,000 Unit/Cap Capsule 73526 UNIT PO DAILY, CAP Vitamin B Complex (B Complex) 1 Cap Capsule 1 CAP PO DAILY, CAP PHYSICAL EXAM: GENERAL: alert, weak, awake oriented x 3 HEENT: EOMI, Sclera non icteric, moist mucosa NECK: Supple, no JVD, trachea midline LUNGS: Clear breath sounds bilaterally. No wheezes HEART: Regular rate and rhythm. Normal S1 and S2, without murmurs ABD: Abdomen soft, non-tender, bowel sounds present EXT: No clubbing cyanosis or edema NEURO: Alert and oriented to person, follows commands FOLLOW-UP: F/U with PCP for reevaluation. Continue medications as prescribed upon discharge. RECOMMENDATIONS: See Discharge Instructions This case was seen and discussed with my supervising physician. More than 30 minutes spent on discharge process, including evaluation of the patient, discussion with nursing staff, medication reconciliation and follow-up appointments TANVIR PICKARD December 26, 2024 15:19
[2024-12-26 15:58] VITALS: BP 155/70; PULSE 65; RESP 18; TEMP 97.8
--- NOTE | 2024-12-26 16:26 | NUR ---
DISCHARGE PIV DC'D DISCHARGE INSTRUCTIONS GIVEN TO THE PATIENT PATIENT IS AWARE OF PRESCRIPTIONS THAT WERE SENT ALL QUESTIONS ANSWERED PRIOR TO DISCHARGE
== END 2024-12-26 17:22 | disposition home or self-care (01) ==
LOC: EDH 17:50 → EDHIP 21:14 → INTOOBSV 21:14 → 3BH 22:54
PROVIDERS: ADMIT Internal Medicine Critical Care Medicine; ATTEND Internal Medicine Critical Care Medicine
DX: R10.84 Generalized abdominal pain (principal); R26.81 Unsteadiness on feet; R74.01 Elevation of levels of liver transaminase levels; D72.829 Elevated white blood cell count, unspecified; I10 Essential (primary) hypertension; E78.5 Hyperlipidemia, unspecified; K21.9 Gastro-esophageal reflux disease without esophagitis; Z90.710 Acquired absence of both cervix and uterus; Z90.49 Acquired absence of other specified parts of digestive tract; Z79.899 Other long term (current) drug therapy
CPT/HCPCS: 99285; 74176; 96365; 96375 ×2; 80076; 80048; 83690; 85025; 81003; 36415; 96361; 96366; 96372; J7040; J2270; J2405; J2470; J3490 ×3; G0378; J1650; 96374